=== PATIENT | female | born 1995 | race Caucasian/White ===

== ENCOUNTER 2017-02-23 15:33 | Emergency (ER) | payer BC ==
--- NOTE | 2017-02-23 16:17 | ER NURSING DOCUMENTATION ---
Nurse's Notes [facility] Name:Tiffany Davidson Age:21 yrs Sex:Female :1995 Arrival Date:02/23/2017 Time:15:33 Bed5 Private MD: Diagnosis:Myofascial Lumbar Strain Presentation: 02/23 15:38 Transition of care: patient was not received from another setting of care. Risk nf considerations: patient denies associated abdominal pain and neurologic symptoms. Notified ED Physician of patient's arrival and CC Dr. Casillas notified. 15:38 Method Of Arrival: Walk In nf 15:38 Acuity: STELLA 3 nf 15:59 Care prior to arrival: Medication(s) given: Ibuprofen @1345. nf 16:00 Presenting complaint: Patient states: fell onto L/S spine about 1 week ago roller nf skating; last night began to have L/S spine pain and today back pain that prevented her from working, saw nurse at [facility] where she works and was told to come to ER for XRs. Triage Assessment: 15:38 General: Appears in no apparent distress, well nourished, well groomed, Behavior is nf pleasant. Pain: Complains of pain in low back. Neuro: No deficits noted. Moves all extremities. Gait is steady, Speech is normal, Babinski is positive. Neuro: Denies bowel and bladder dysfunction. Musculoskeletal: Circulation, motion, and sensation intact Capillary refill < 3 seconds. Musculoskeletal: Denies weakness in lower extremities numbness in, lower extremities. Historical: - Allergies: PENICILLINS; - Home Meds: 1. None - PMHx: None; - PSHx: NA; - Tetanus: Other NA today. - Ebola Screening: : No symptoms or risks identified at this time. . - Immunization history: Flu Vaccine unknown. - Social history: Smoking status: Patient states was never smoker of tobacco. Patient/guardian denies using alcohol, street drugs. Screenin:59 Infectious Disease Risk None. Abuse screen: Denies threats or abuse. Nutritional nf screening: No deficits noted. Assessment: 15:38 Neuro: Level of Consciousness is awake, alert. nf 15:39 See Triage Assessment done by same RN. nf 16:00 : Parent/caregiver report the patient having LMP 2 weeks ago. nf Vital Signs: 15:40 BP 123 / 68; Pulse 76; Resp 16; Temp 99.4(O); Pulse Ox 94% ; Weight 79.83 kg (R); arc Height 5 ft. 6 in. (167.64 cm); Pain 3/10; 15:40 Body Mass Index 28.41 (79.83 kg, 167.64 cm) arc ED Course: 15:35 Patient arrived in ED. em3 15:38 Natividad Farrell, RN is Primary Nurse. nf 15:38 Triage completed. nf 15:38 Arm band placed on Bed in low position Call Light in Reach Gowned Side rails up x1. nf 15:39 Valuables Remains with patient. Door closed. Noise minimized. Lights dimmed. Moved to private room. Verbal reassurance given. Warm blanket given. Pillow given. 16:09 Francisco Casillas MD is Attending Physician. tl1 Administered Medications: No medications were administered Outcome: 16:10 Discharge ordered by . tl1 16:16 Discharged to home ambulatory. nf 16:16 Condition: stable 16:16 Discharge Assessment: Patient awake, alert and oriented x 3. No cognitive and/or functional deficits noted. Patient verbalized understanding of disposition instructions. 16:16 Discharge instructions given to patient, Instructed on discharge instructions, medication usage, Demonstrated understanding of instructions, medications. 16:17 Patient left the ED. 02/24 13:20 Discharge F/U Call: Unable to reach: left voicemail: kennedy Signatures: Danna Balderas RN RN lc Friel, Nicole, KERRI MANNING Anson Hassan em3 Francisco Casillas MD MD tl1 Sydnie, Berna, Reg Reg arc
--- NOTE | 2017-02-25 16:17 | ER PHYSICIAN DOCUMENTATION ---
Physician Documentation [facility] Name:Tiffany Davidson Age:21 yrs Sex:Female :1995 Arrival Date:02/23/2017 Time:15:33 Bed5 Private MD: Francisco Velasco Disposition: 02/23 16:28 Chart complete. tl1 Disposition: 02/23/17 16:10 Discharged to Home/Self Care. Impression: Myofascial Lumbar Strain. - Condition is Good. - Discharge Instructions: BACK SPRAIN/STRAIN. - Medical Reconciliation form form. - Follow up: Private Physician; When: 4- 6 days; Reason: Recheck today's complaints, Continuance of care. - Problem is new. - Symptoms have improved. - Notes: OK TO TAKE TYLENOL AND IBUPROFEN FOR PAIN. TRY TO TAKE IT EASY TOMORROW AT WORK, BUT IT IS OK TO TRY. STOP WORKING IF YOUR PAIN BECOMES WORRISOME. HPI: 16:13 This 21 yrs old Female presents to ER via Walk In with complaints of Back tl1 Injury. 16:13 The patient presents with pain that is acute. The symptoms are located in the low back. tl1 Onset: The symptoms/episode began/occurred suddenly, yesterday. The pain does not radiate. Modifying factors: The patient symptoms are alleviated by remaining still, the patient symptoms are aggravated by lifting, SITTING, BENDING. She was rollerblading yesterday on a wooden floor at the [facility] and fell, landing on her lower back as she was transitioning from skating forward to skating backwards. 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 She stopped working and saw the nurse at the , WHO thought she needed to come here for x-rays. She denies N/W/T. The pain does not radiate. No incontinence. No other complaint.. Historical: - Allergies: PENICILLINS; - Home Meds: 1. None - PMHx: None; - PSHx: NA; - Tetanus: Other NA today. - Ebola Screening: : No symptoms or risks identified at this time. . - Immunization history: Flu Vaccine unknown. - Social history: Smoking status: Patient states was never smoker of tobacco. Patient/guardian denies using alcohol, street drugs. ROS: 16:00 Back: Positive for pain with movement, Negative for decreased range of motion, radiated tl1 pain. 16:00 All other systems are negative. Exam: 16:00 Constitutional: This is a well developed, well nourished patient who is awake, alert, tl1 and in no acute distress. 16:00 Head/Face: Normocephalic, atraumatic. tl1 16:00 Eyes: Extraocular movements: intact throughout, Conjunctiva: normal. 16:00 Neck: ROM/movement: is normal, is supple, without pain, no meningismus, no nuchal rigidity. 16:00 Cardiovascular: Rate: normal. 16:00 Respiratory: Respirations: normal. 16:00 Abdomen/GI: Inspection: abdomen appears normal, Palpation: abdomen is soft and non-tender. 16:00 Back: pain, that is very mild, ROM is normal, painless, normal spinal alignment noted, CVA tenderness, is absent, muscle spasm, is not present, Straight leg raises: right lower extremity does not illicit pain, left lower extremity does not illicit pain. 16:00 Skin: Exam negative for 16:00 Neuro: Orientation: is normal, Mentation: is normal, Memory: is normal, Cranial nerves: grossly normal, Cerebellar function: Motor: is grossly normal based on the patient's age, no acute changes, moves all fours, Sensation: light touch sense is normal, Gait: Deep tendon reflexes are 2+ (normal) in the . Vital Signs: 15:40 BP 123 / 68; Pulse 76; Resp 16; Temp 99.4(O); Pulse Ox 94% ; Weight 79.83 kg (R); arc Height 5 ft. 6 in. (167.64 cm); Pain 3/10; 15:40 Body Mass Index 28.41 (79.83 kg, 167.64 cm) arc MDM: 15:56 Patient medically screened. tl1 16:15 Data reviewed: vital signs, nurses notes, and as a result, I will discharge patient. tl1 Counseling: I had a detailed discussion with the patient and/or guardian regarding: the historical points, exam findings, and any diagnostic results supporting the discharge/admit diagnosis, the need for outpatient follow up, to return to the emergency department if symptoms worsen or persist or if there are any questions or concerns that arise at home. Response to treatment: There is no appreciated change of the patient's symptoms at this time, and as a result, I will discharge patient. Special discussion: I told her I don't think she needs x-rays. She has minimal discomfort now which is no worse with palpation and she has a FROM of her spine with no painful movements or positions now. I suspect a minor self limited injury and expect a full spontaneous recovery without sequellae. She can f/u with a locaL PCP as needed.. Dispensed Medications: No medications were administered Signatures: Natividad Farrell RN RN Francisco Miner MD MD tl1
== END 2017-02-23 16:17 | disposition home or self-care (01) ==
LOC: ER 15:33
DX: S39.012A Strain of muscle, fascia and tendon of lower back, initial encounter (principal); V00.111A Fall from in-line roller-skates, initial encounter; Y92.331 Roller skating rink as the place of occurrence of the external cause; Y93.51 Activity, roller skating (inline) and skateboarding
CPT/HCPCS: 99281